=== PATIENT | male | born 2000 | race Caucasian/White ===

== ENCOUNTER 2024-11-25 12:27 | Outpatient (CLI) | payer BC, SELFPAY ==
[2024-11-25 13:33] LABS: Erythrocyte Sedimentation Rate 3 mm/hr (0-15)
[2024-11-25 13:35] LABS: Basophils # 0.1 K/mm3 (0-0.2); Basophils % 1.1 % (0.1-2.0); Eosinophils # 0.4 K/mm3 (0.0-0.4); Eosinophils % 4.9 % (0.1-12.0); Hematocrit 47.2 % (42.0-52.0); Hemoglobin 15.6 g/dL (14.1-18.0); Lymphocytes # 2.7 K/mm3 (0.7-4.5); Lymphocytes % 29.6 % (10-50); Mean Corpuscular HGB Conc 33.1 g/dL (31.8-35.4); Mean Corpuscular Hemoglobin 30.5 pg (27.0-31.2); Mean Corpuscular Volume 92.2 fl (80-94); Mean Platelet Volume 9.9 fl (7.4-10.4); Monocytes # 0.7 K/mm3 (0.1-1.0); Neutrophils % 56.1 % (37.0-80.0); Platelet Count 301 K/mm3 (142-424); Red Blood Count 5.12 M/mm3 (4.60-6.20); Red Cell Distribution Width 11.9 % (11.5-17.5)
[2024-11-25 13:42] LABS: Albumin Level 4.8 g/dl (3.5-5.0); Chloride 102 mmol/L (98-107)
[2024-11-25 13:43] LABS: Potassium 5.1 mmoL/L (3.5-5.1); Sodium 139 mmol/L (136-145)
[2024-11-25 13:45] LABS: Alanine Aminotransferase 27 U/L (12-78); Alkaline Phosphatase 42 U/L (38-126); Anion Gap 12.1 mEq/L (5-15); Aspartate Amino Transferase 31 U/L (17-59); Bilirubin,Total 0.5 mg/dl (0.2-1.3); Blood Urea Nitrogen 19 mg/dl (9-20); Carbon Dioxide 30 mmol/L (22.0-30.0); Estimated Glomerular Filt Rate 84 ml/min (>60); GFR (African American) 101 ML/MIN (>60)
[2024-11-25 13:46] LABS: Albumin/Globulin Ratio 1.7 (1.1-1.8); Calcium 10.2 mg/dl (8.4-10.2); Globulin 2.9 g/dL (1.3-3.2); Glucose 93 mg/dl (74-100); Iron 130 ug/dL (49-181); Total Protein,Serum 7.7 g/dl (6.3-8.2)
[2024-11-25 13:53] LABS: C-Reactive Protein 0.7 mg/L (0-4)
[2024-11-25 13:56] LABS: Total Iron Binding Capacity 371 ug/dL (261-462)
[2024-11-25 14:05] LABS: 25-OH Vitamin D, Total 37.8 ng/mL (30-100)
[2024-11-25 14:22] LABS: Ferritin 54.8 ng/ml (17.9-464)
[2024-11-25 15:30] LABS: Vitamin B12 566 pg/mL (239-931)
[2024-11-28 10:14] LABS: QuantiFERON-TB Gold Plus Negative (Negative)
== END 2024-11-25 23:59 | disposition home or self-care (01) ==
LOC: LAB 12:32
PROVIDERS: PCP Family Medicine; Visit Provider Nurse Practitioner Family
DX: K51.90 Ulcerative colitis, unspecified, without complications (principal); Z68.28 Body mass index [BMI] 28.0-28.9, adult; E66.3 Overweight
CPT/HCPCS: 36415; 80053; 82306; 82607; 82728; 83540; 83550; 85025; 85651; 86140; 86480

== ENCOUNTER 2025-04-09 08:06 | Day surgery (SDC) | payer BC, SELFPAY ==
[2025-04-07 16:19] VITALS: BMI 27.9
[2025-04-09 08:34] VITALS: BP 135/75; PULSE 67; RESP 16; TEMP 36.3; O2SAT 100
[2025-04-09] MEDS: LACTATED RINGERS 1000ML 1,000 ML 50 ML IV (08:40)
--- NOTE | 2025-04-09 09:30 | EXP.ANES.CKL ---
[facility] Disclaimer: The information contained in this section may have been updated after the patient was seen, as this information can be updated by other users. Medical History Colonoscopy planned Ulcerative colitis Family History Other No significant family history Social History Smoking Status: Never smoker alcohol intake: current substance use type: unknown current occupational status: employed Travel in the last 8 weeks?: None caffeine: Yes [facility] Anesthesia Checklist Patient Identification Patient Identification: Arm Band and Verbal (Name & ) Structural Data Admitted From: Home Planned Operative Procedure/s: colonscopy Verified Documents: Surgical Consent and History and Physical NPO Status Verified Time NPO: 00:00 Additional verifications Anesthesia Reactions: No Previous Colonoscopy: Yes Airway Assessment Mallampati Score:: Class II Dentition: Good Dentition Neurological Assessment Level of Consciousness: Awake, Alert and Appropriate Hx Seizures: No Anesthesia Plan Anesthesia Risk discussed: Yes Anesthesia Plan: Verified ASA Class: I Anesthesia Type: MAC
--- NOTE | 2025-04-09 09:31 | EXP.HP ---
History of Present Illness *Admission Date: 04/09/25 *Reason for visit:: Chronic ulcerative colitis *History of present illness: Mr. Arrieta is a 24-year-old gentleman with chronic ulcerative colitis who is here for surveillance colonoscopy. The patient has had ulcerative colitis since age 9 (17 years). The examination is deemed medically necessary for surveillance colonoscopy. The patient has been seen, interviewed and examined prior to the procedure by both myself and the anesthesia provider. [facility] Disclaimer: The information contained in this section may have been updated after the patient was seen, as this information can be updated by other users. Medical History (Updated 04/09/25 @ 09:33 by Jp Wren II, MD) Colonoscopy planned Ulcerative colitis Family History Other No significant family history Social History (Updated 04/09/25 @ 08:39 by Jannette Marie RN) Smoking Status: Never smoker alcohol intake: current substance use type: unknown current occupational status: employed Travel in the last 8 weeks?: None caffeine: Yes Review of Systems Review of Systems Review of systems (narrative): Negative *Cardiovascular Comments: Negative *Gastrointestinal Comments: Negative *Genitourinary Comments: Negative *Musculoskeletal Comments: Negative *Neurologic Comments: Negative Meds Home Medications and Allergies Home Medications ?Medication ?Instructions ?Recorded ?Confirmed ?Type adalimumab 40 mg/0.4 mL See Rx Instructions SQ .COMPLEX #2 01/07/25 04/09/25 Rx subcutaneous pen kit (Humira(CF) ea Pen) sodium,potassium,mag sulfates 17.5 See Rx Instructions PO .COMPLEX 03/26/25 Rx gram-3.13 gram-1.6 gram oral soln #354 mL (Suprep Bowel Prep Kit) cetirizine 10 mg tablet (Zyrtec) 10 mg PO DAILY PRN allergies 04/07/25 04/09/25 History fluticasone propionate 50 1 spray intranasal BID 04/07/25 04/09/25 History mcg/actuation nasal spray,suspension New Prescriptions to Start Prescriptions: Allergies Allergy/AdvReac Type Severity Reaction Status Date / Time No Known Allergies Allergy Verified 04/09/25 08:31 Exam Data for Last 24 hours Vital signs and Labs for Last 24 Hours: Temp Pulse Resp BP Pulse Ox O2 Del Method 97.4 F L 67 16 135/75 100 Room Air 04/09/25 08:34 04/09/25 08:34 04/09/25 08:34 04/09/25 08:34 04/09/25 08:34 04/09/25 08:34 I & O for Last 24 hours: Intake & Output 04/06/25 04/07/25 04/08/25 04/09/25 23:59 23:59 23:59 23:59 Weight 212 lb *Routine HEENT Exam Head: Present normocephalic Eye: Present EOMI and PERRL ENT: Present mucous membranes moist *Routine Neck Exam Neck: Present supple *Routine Respiratory Exam Respiratory: Present CTA bilaterally *Routine Cardiovascular Exam Cardiovascular: Present RRR *Routine Abdominal Exam Abdominal: Present soft and normoactive bowel sounds; Absent tenderness *Routine Rectal Exam Rectal:: deferred *Routine Genitalia Exam Genitalia:: deferred *Routine Extremities Exam Extremities: Absent cyanosis, clubbing or edema *Routine Skin Exam Skin: Present warm; Absent rash *Routine Neurological Exam Neurological: Present alert and oriented X3 Assessment and Plan *Assessment and plan (1) Left sided ulcerative colitis without complication: Status: Acute Category: Medical Code(s): K51.50 - Left sided colitis without complications Plan A/P: 1. History of left-sided ulcerative colitis x 15 years with last colonoscopy in 2018 is the preprocedural diagnosis. The patient will be anesthetized/sedated using MAC sedation. The patient has been seen and examined. Cardiac and lung assessment prior to the examination is stable. Proceed with planned surveillance colonoscopy.
[2025-04-09 09:37] VITALS: O2SAT 100
--- NOTE | 2025-04-09 09:45 | HMH.PROCNOTE ---
[facility] Procedure Note Date: 04/09/25 Time: 10:06 Procedure Note:: Colonoscopy Procedure Report: Colonoscopy with cold biopsies and cold snare polypectomy Endoscopist: Jp Wren II, MD Referring physician: None Date of Procedure: April 09, 2025 Equipment: Olympus 190 variable stiffness pediatric colonoscope Sedation: MAC sedation Indication: Mr. Arrieta is a 24-year-old gentleman with chronic ulcerative colitis/pancolitis since the age of 9 or 10. He had been followed at the [facility] pediatric gastroenterology. He did have a colonoscopy in January 2018 (at the age of 17) and had pancolitis. He was started on Humira at that time. He achieved complete clinical remission. He has not had any repeat colonoscopy since then and is doing well. He had normal labs in October 2024 with hemoglobin 15.6, hematocrit 47.2 and WBC 9.0. His chemistries were normal with normal iron 130, iron saturation 35%, TIBC 371, ferritin 54, AST 31, ALT 27 and alkaline phosphatase 42. His C-reactive protein was 0.7 and he had normal vitamin D and B12 levels. The patient reports no abdominal pain, rectal bleeding or mucus, diarrhea or weight loss. He presently lives in [place] and is moving to [facility]. Procedure: Prior to the procedure, a history and physical exam was performed, and patient's medications and allergies were reviewed. The risks, benefits and alternatives of the sedation and procedure were discussed with the patient. All questions were answered and informed consent was obtained. The patient was brought to the procedure room. Patient identification and proposed procedure were verified by the physician and the nurse. The patient was placed in a left lateral decubitus position and the scope was passed under direct vision. Throughout the procedure, the patient's blood pressure, pulse, and oxygen saturations were monitored continuously. The colonoscopy was accomplished without difficulty. The patient tolerated the procedure well. Findings: On digital rectal examination there was normal rectal tone. There were no external hemorrhoids. The colonoscope was introduced through the anal canal to the rectum and advanced to the cecum. The ileocecal valve and appendiceal orifice were identified. The scope was advanced a short distance into the ileum which appeared grossly normal. The scope was then withdrawn into the colon. There was mild mucosal erythema around the appendiceal orifice (cecal patch) and this was biopsied with cold biopsy forceps. The remaining cecum, ascending, transverse, descending, sigmoid and rectum were grossly normal. There was normal vascular pattern with no mucosal erythema, edema or granularity. There were no mucosal abnormalities identified. There was a diminutive polyp in the rectum that was 3 to 4 mm and removed via cold snare polypectomy. There was some minor heme at the polypectomy site so a small Endo Clip was placed with excellent hemostasis. Upon retroflexion within the rectum there were grade 1-2 internal hemorrhoids. The preparation was excellent throughout with [place] Preparation Score of 9. The cecal time was 12 minutes. Impression: 1. Cecal patch 2. Diminutive hyperplastic appearing rectal polyps 3. Complete colonoscopic remission of ulcerative colitis 4. Grade 1-2 internal hemorrhoids Plan: An isolated cecal patch of inflammation is present in many patients with a prior history of ulcerative colitis. We have learned that cecal inflammation may be part of normal cecal health, and that the cecum has a higher percentage of eosinophils, Paneth cells, and laminar propria inflammation than do other areas of the colon. I will follow-up the biopsies. I would continue Humira as maintenance therapy and he has had an excellent clinical and colonoscopic response with remission. I would recommend repeat surveillance colonoscopy in 5 years.
[2025-04-09 10:10] VITALS: BP 133/80; PULSE 81; RESP 16; TEMP 36.1; O2SAT 96
[2025-04-09 10:20] VITALS: BP 132/72; PULSE 76; RESP 16; O2SAT 97
[2025-04-09 10:30] VITALS: BP 127/56; PULSE 63; RESP 16; O2SAT 98
[2025-04-09 10:40] VITALS: BP 134/74; PULSE 68; RESP 16; O2SAT 98
[2025-04-14 15:11] LABS: Saccharomyces cerevisiae, IgA 21.9 Units (0.0-24.9); Saccharomyces cerevisiae, IgG 43.3 Units (0.0-24.9)
[2025-04-16 12:12] LABS: Adalimumab Drug Level 9.5 ug/mL (.); Anti-Adalimumab Antibody < 25 ng/mL (.)
== END 2025-04-09 10:48 | disposition home or self-care (01) ==
PROVIDERS: Visit Provider Internal Medicine Gastroenterology
PROC: 0DJD8ZZ Inspection of Lower Intestinal Tract, Via Natural or Artificial Opening Endoscopic (ICD-10-PCS; CPT 45378; principal; 2025-04-09 10:00)
DX: K51.50 Left sided colitis without complications (principal); K63.5 Polyp of colon; K64.8 Other hemorrhoids; Z12.11 Encounter for screening for malignant neoplasm of colon
CPT/HCPCS: 45380; 45385; 36415; 80145; 82397; 86256; 86671; J2704; J7120